=== PATIENT | female | born 1945 | race African-American/Black ===

== ENCOUNTER 2017-09-29 00:37 | Emergency (ER) | payer MEDICARE, OTHER ==
[~2017-09-29] VITALS: Ht 165.1 cm; Wt 136.0 kg
[~2017-09-29 00:37] MED LIST: ALBU8HFA IH; ASPI81TA42 PO; ATOR40TA28 PO; CLOP75 PO; DOCU250C91 PO; FERR-89 PO; FLUT1DIS3 IH; FURO-152 PO; GABA-531 PO; ISOS20TA7 PO; KDUR10 PO; LEVO75 PO; LISI-662 PO; MULT-1238 PO; OMEP20 PO; SYMB8060 IH
[2017-09-29] MEDS ORDERED: FURO20 PO (00:49)
[2017-09-29] MEDS ORDERED: ALLO300 PO (00:49)
[2017-09-29] MEDS ORDERED: LEVO100 PO (00:49)
[2017-09-29] MEDS ORDERED: OMEP20 PO (00:49)
[2017-09-29] MEDS ORDERED: OXYM-17 NASAL (00:49)
[2017-09-29] MEDS ORDERED: KDUR10 PO (00:49)
[2017-09-29] MEDS ORDERED: BACITRACIN 0.9 GM PACKET OINTMENT TP ONE (04:00)
[2017-09-29 04:10] VITALS: BP 121/67
== END 2017-09-29 04:14 | disposition home or self-care (01) ==
LOC: EMS 00:38
DX: S00.411A Abrasion of right ear, initial encounter (principal); E03.9 Hypothyroidism, unspecified; E78.00 Pure hypercholesterolemia, unspecified; I10 Essential (primary) hypertension; J45.909 Unspecified asthma, uncomplicated; K21.9 Gastro-esophageal reflux disease without esophagitis; Z79.82 Long term (current) use of aspirin; Z79.899 Other long term (current) drug therapy; X58.XXXA Exposure to other specified factors, initial encounter; Y93.89 Activity, other specified; Y92.89 Other specified places as the place of occurrence of the external cause; Y99.8 Other external cause status
CPT/HCPCS: 99283

== ENCOUNTER 2017-11-30 15:57 | Inpatient (IN) | payer MEDICARE, OTHER ==
[~2017-11-30] VITALS: Ht 167.6 cm; Wt 148.1 kg
[~2017-11-30 15:57] MED LIST changes: +ALLO300 PO; -FLUT1DIS3 IH; -FURO-152 PO; +FURO20 PO; +LEVO100 PO; -LEVO75 PO; +OXYM-17 NASAL
[2017-11-30] MEDS ORDERED: ALBU8HFA IH (16:07)
[2017-11-30] MEDS ORDERED: SODIUM CHLORIDE 0.9% 1,000 ML IV ONE ×3 (17:07→22:00)
[2017-11-30 17:33] LABS: BASOPHILS % (AUTO) 0.9 % (0.0-2.0); EOSINOPHILS % (AUTO) 6.4 % (1.0-6.0); HEMATOCRIT 30.5 % (36-46); HEMOGLOBIN 10.1 g/dL (12.0-16.0); LYMPHOCYTES # (AUTO) 0.9 K/uL (1.0-4.8); LYMPHOCYTES % (AUTO) 11.3 % (22.0-44.0); MEAN CORPUSCULAR HEMOGLOBIN 31.8 pg (26.0-34.0); MEAN CORPUSCULAR HGB CONC 33.2 G/dL (31.0-37.0); MEAN CORPUSCULAR VOLUME 96 fL (80-100); MONOCYTES # (AUTO) 0.8 K/uL (0.1-1.0); MONOCYTES % (AUTO) 10.4 % (2.0-9.0); NEUTROPHILS # (AUTO) 5.4 K/uL (1.8-7.7); PLATELET COUNT (AUTO) 190 K/uL (150-450); RED BLOOD CELL COUNT(AUTO) 3.19 MIL/uL (4.00-5.20); RED CELL DISTRIBUTION WIDTH 18.5 % (11.5-14.5)
[2017-11-30 17:58] LABS: BILIRUBIN,TOTAL 0.2 mg/dL (0.1-1.0); CALCIUM, TOTAL 9.1 mg/dL (8.8-10.5); CREATININE 2.42 mg/dL (0.60-1.30); TOTAL PROTEIN, SERUM 7.8 g/dL (6.4-8.2)
[2017-11-30 18:01] LABS: POTASSIUM 6.9 mmol/L (3.5-5.1)
[2017-11-30] MEDS ORDERED: CALCIUM GLUCONATE 1,000 MG in DEXTROSE 5%-WATER 50 ML IV ONE (19:00)
[2017-11-30] MEDS ORDERED: DEXTROSE 50%-WATER 25 GM/50 ML SYRINGE IVP ONE (19:00)
[2017-11-30] MEDS ORDERED: INSULIN REGULAR, HUMAN 100 UNITS/ML IVP ONE (19:00)
[2017-11-30] MEDS ORDERED: SODIUM POLYSTYRENE SULFONATE 15 GM/60 ML SUSPENSION BOTTLE PO ONE (19:00)
[2017-11-30 20:01] LABS: ABG A-A DIFF O2 12.1 mmHg (10-20.0); ABG BASE EXCESS -10.8 mmol/L (-2.0-3.0); ABG CARBOXYHEMOGLOBIN 0.9 % (0.0-1.5); ABG HCO3 16.3 mmol/L (22.0-26.0); ABG METHEMOGLOBIN 0.9 % (0.0-1.5); ABG OXYGEN CONTENT 13.2 mL/dL (15.0-23.0); ABG OXYGEN SATURATION 96.2 % (95.0-98.0); ABG OXYHEMOGLOBIN 94.5 % (94.0-100.0); ABG PCO2 39 mmHg (35-45); ABG PH 7.243 (7.35-7.450); ABG TOTAL HEMOGLOBIN 9.8 G/dL (12.0-18.0); PO2, ARTERIAL BG 90.6 mmHg (75.0-83.0); SOURCE, BLOOD GAS ARTERIAL; TEMPERATURE, FAHRENHEIT, BG 98.7 FAHREN (96.0-98.6)
[2017-11-30 20:02] LABS: O2 DEVICE,BLOOD GAS ROOM AIR (ROOM AIR); SITE, BLOOD GAS LFT RADIAL
[2017-11-30 20:36] LABS: APPEARANCE,URINE CLEAR (CLEAR); BILIRUBIN,URINE NEGATIVE (NEGATIVE); GLUCOSE, URINE (UA) 100 mg/dL (NEGATIVE); KETONES,URINE NEGATIVE (NEGATIVE); LEUKOCYTE ESTERASE ,URINE TRACE (NEGATIVE); NITRATE,URINE NEGATIVE (NEGATIVE); OCCULT BLOOD,URINE NEGATIVE (NEGATIVE); PROTEIN,URINE NEGATIVE (NEGATIVE); UROBILINOGEN,URINE 0.2 mg/dL (<=1.0)
[2017-11-30 20:41] LABS: AMPHET/METH SCREEN,URINE NEGATIVE (NEGATIVE); BARBITURATE SCREEN, URINE NEGATIVE (NEGATIVE); BENZODIAZEPINES SCREEN,URINE NEGATIVE (NEGATIVE); CANNABINOID SCREEN,URINE NEGATIVE (NEGATIVE); COCAINE SCREEN,URINE NEGATIVE (NEGATIVE); METHADONE SCREEN, URINE NEGATIVE (NEGATIVE); OPIATE SCREEN,URINE NEGATIVE (NEGATIVE); PHENCYCLIDINE SCREEN,URINE NEGATIVE (NEGATIVE)
[2017-11-30 21:12] LABS: RBC,URINE None Seen /HPF (0-2)
[2017-11-30 21:13] LABS: BACTERIA,URINE Few /HPF (None Seen)
[2017-11-30 21:14] LABS: SQUAMOUS EPITHELIAL CELL,UR Few /LPF (None Seen); TRANSITIONAL EPI CELLS,URINE Few /LPF (None Seen)
[2017-11-30] MEDS ORDERED: 0.9% SODIUM CHLORIDE 10 ML SYRINGE IVP PRN (21:15)
[2017-11-30] MEDS ORDERED: ACETAMINOPHEN 325 MG TABLET PO PRN ×2 (21:15→22:00)
[2017-11-30] MEDS ORDERED: ONDANSETRON HCL 4 MG/2 ML VIAL IVP PRN (21:15)
[2017-11-30 21:22] LABS: CALCIUM, TOTAL 9.3 mg/dL (8.8-10.5); CREATININE 2.32 mg/dL (0.60-1.30); POTASSIUM 5.5 mmol/L (3.5-5.1)
[2017-11-30] MEDS ORDERED: ALBUTEROL SULFATE 2.5 MG/0.5 ML NEB SOLUTION NEB PRN (22:00)
[2017-11-30] MEDS ORDERED: OxyCODONE HCL/ACETAMINOPHEN 5-325 MG TABLET PO PRN (22:00)
[2017-11-30] MEDS ORDERED: BISACODYL 10 MG RECTAL RECTAL SUPPOSITORY PR PRN (22:00)
[2017-11-30 23:15] VITALS: BP 130/54
[2017-12-01 04:51] VITALS: BP 117/60
[2017-12-01 06:38] LABS: CALCIUM, TOTAL 8.6 mg/dL (8.8-10.5); CREATININE 1.92 mg/dL (0.60-1.30); POTASSIUM 5.1 mmol/L (3.5-5.1)
[2017-12-01 08:12] VITALS: BP 122/58
[2017-12-01] MEDS: DOCUSATE SODIUM 100 MG CAPSULE PO SCH ×2 (08:22→20:13)
[2017-12-01] MEDS: HEPARIN SODIUM,PORCINE 5,000 UNITS/ML VIAL SQ SCH ×2 (08:22→20:13)
[2017-12-01] MEDS: CLOPIDOGREL BISULFATE 75 MG TABLET PO SCH (08:22)
[2017-12-01] MEDS: ASPIRIN 81 MG CHEWABLE TABLET PO SCH (08:22)
[2017-12-01] MEDS: PANTOPRAZOLE SODIUM 40 MG DR TABLET PO SCH (08:22)
[2017-12-01] MEDS ORDERED: SODIUM CHLORIDE 0.9% 1,000 ML IV ONE (09:15)
[2017-12-01 12:01] VITALS: BP 130/57
[2017-12-01 15:58] VITALS: BP 116/67
[2017-12-01 19:23] VITALS: BP 107/56
[2017-12-01] MEDS ORDERED: ATORVASTATIN CALCIUM 20 MG TABLET PO SCH (21:00)
[2017-12-01 23:08] VITALS: BP 104/50
[2017-12-02 04:46] VITALS: BP 147/69
[2017-12-02 07:23] VITALS: BP 111/60
[2017-12-02 07:25] LABS: CREATININE 1.25 mg/dL (0.60-1.30); POTASSIUM 4.8 mmol/L (3.5-5.1)
[2017-12-02] MEDS: DOCUSATE SODIUM 100 MG CAPSULE PO SCH (07:49)
[2017-12-02] MEDS: ASPIRIN 81 MG CHEWABLE TABLET PO SCH (07:49)
[2017-12-02] MEDS: PANTOPRAZOLE SODIUM 40 MG DR TABLET PO SCH (07:49)
[2017-12-02] MEDS: CLOPIDOGREL BISULFATE 75 MG TABLET PO SCH (07:49)
[2017-12-02] MEDS: HEPARIN SODIUM,PORCINE 5,000 UNITS/ML VIAL SQ SCH (07:50)
[2017-12-02 09:33] LABS: URIC ACID 4.3 mg/dL (2.6-7.2)
[2017-12-02 11:34] VITALS: BP 114/51
[2017-12-02 15:45] VITALS: BP 108/46
== END 2017-12-02 16:55 | disposition home or self-care (01) | DRG 683 ==
LOC: EMS 15:58 → 5S 21:27
PROVIDERS: ADMIT Internal Medicine; ATTEND Internal Medicine
PROC: 5A09357 Assistance with Respiratory Ventilation, Less than 24 Consecutive Hours, Continuous Positive Airway Pressure (ICD-10-PCS; principal; 2017-12-01)
DX: N17.9 Acute kidney failure, unspecified (principal); Z68.43 Body mass index [BMI] 50.0-59.9, adult; E87.5 Hyperkalemia; E03.9 Hypothyroidism, unspecified; E66.01 Morbid (severe) obesity due to excess calories; E78.00 Pure hypercholesterolemia, unspecified; E78.5 Hyperlipidemia, unspecified; F17.210 Nicotine dependence, cigarettes, uncomplicated; G47.33 Obstructive sleep apnea (adult) (pediatric); I25.10 Atherosclerotic heart disease of native coronary artery without angina pectoris; J44.9 Chronic obstructive pulmonary disease, unspecified; M19.90 Unspecified osteoarthritis, unspecified site; I10 Essential (primary) hypertension; K21.9 Gastro-esophageal reflux disease without esophagitis; T39.395A Adverse effect of other nonsteroidal anti-inflammatory drugs [NSAID], initial encounter; Z82.49 Family history of ischemic heart disease and other diseases of the circulatory system; Z91.19 Patient's noncompliance with other medical treatment and regimen; Z95.5 Presence of coronary angioplasty implant and graft; B96.20 Unspecified Escherichia coli [E. coli] as the cause of diseases classified elsewhere
CPT/HCPCS: 51702; 76770; 82805; 84550; 87086; 93005; 94660; 96374; 96375; 99291; J0610; J1644; J1815; J7030; J7060